=== PATIENT | female | born 1970 | race Caucasian/White ===

== ENCOUNTER 2018-09-17 13:46 | Outpatient (CLI) | payer OTHER, SELFPAY ==
[2018-09-17 14:23] LABS: Anion Gap 7.2 mmol/L (3-11); BUN 14 mg/dL (7-18); CO2 27.8 mmol/L (21.0-32.0); CREATININE 0.83 mg/dL (0.55-1.02); Calcium 9.2 mg/dL (8.5-10.1); Chloride 105 mmol/L (98-107); Glucose 82 mg/dL (70-100); Potassium 4.5 mmol/L (3.5-5.1); Sodium 140 mmol/L (136-145); TSH (W/Ref FT4) 4.79 uIU/mL (0.358-3.74)
[2018-09-17 14:41] LABS: FREE T4 0.88 ng/dL (0.76-1.46)
== END 2018-09-17 14:06 ==
PROVIDERS: PCP Family Medicine; Visit Provider Family Medicine
DX: E03.9 Hypothyroidism, unspecified (principal); R13.10 Dysphagia, unspecified; Z00.00 Encounter for general adult medical examination without abnormal findings
CPT/HCPCS: 80048; 84439; 84443

== ENCOUNTER 2018-12-09 14:19 | Outpatient (REF) | payer OTHER, SELFPAY ==
--- NOTE | 2018-12-09 14:00 | PAPFT_PTH ---
PATIENT: CARLTON COLÓN LOC: [facility] U#:[id number] AGE/SX: 48/F ROOM: RE12/09/[address]: CORWIN Bartlett : 1970 BED: DIS: 12/09/2018 SPEC #: [id number] RECD: 12/09/18 17:56 STATUS: EVERT[place] RERadha #: [id number] PHYLICIA: 12/09/18 14:[address]: Heydi Martins DEPT: [facility] Cytology RECD BY: Corie Garcia ENTERED: 12/09/18 17:56 SP TYPE: PAPFT OTHR DR: Peri Felton Tissues: 1 - CX/ENDOCX FOR PAP SMEARS Procedures: PAP THIN PREP/UVM Screening HPV DNA PROBE Comments: [id number]
[2018-12-10 13:43] LABS: Chlamydia Result Negative; GC Result Negative; Specimen Description CERVIX
== END 2018-12-09 14:39 ==
LOC: LBN 14:19
PROVIDERS: PCP Family Medicine; Visit Provider Nurse Practitioner Family
DX: Z11.3 Encounter for screening for infections with a predominantly sexual mode of transmission (principal); Z12.4 Encounter for screening for malignant neoplasm of cervix; Z11.51 Encounter for screening for human papillomavirus (HPV)
CPT/HCPCS: 87491; 87591; 88142; 87624

== ENCOUNTER 2019-01-03 14:16 | Outpatient (REF) | payer OTHER, SELFPAY ==
--- NOTE | 2019-01-03 13:40 | ENDO_PTH ---
PATIENT: CARLTON COLÓN LOC: [facility] U#:[id number] AGE/SX: 48/F ROOM: RE01/03/[address]: Larisa Rosa : 1970 BED: DIS: 01/03/2019 SPEC #: [id number] RECD: 01/03/19 17:50 STATUS: [place] REQ #: [id number] PHYLICIA: 01/03/19 13:[address]: Larisa Rosa DEPT: Surgical Specimen RECD BY: Corie Garcia ENTERED: 01/03/19 17:50 SP TYPE: Endo OTHR DR: Peri Felton Tissues: 1 - ENDOCERVICAL BX/CURRETTE Procedures: GROSS AND MICRO LEVEL 4 Comments: [id number]
== END 2019-01-03 14:36 ==
LOC: LBN 14:16
PROVIDERS: PCP Family Medicine; Visit Provider Obstetrics & Gynecology Gynecology
DX: N88.8 Other specified noninflammatory disorders of cervix uteri (principal); R87.810 Cervical high risk human papillomavirus (HPV) DNA test positive
CPT/HCPCS: 88305